=== PATIENT | female | born 1955 | race Caucasian/White ===

== ENCOUNTER 2020-10-23 16:28 | Outpatient (CLI) | payer OTHER, SELFPAY ==
--- NOTE | ~2020-10-23 | MM_ITS ---
EXAMINATION: MM screening sally BI w joseluis HISTORY: Screening mammogram TECHNIQUE: Craniocaudal and mediolateral oblique 3-D tomosynthesis images were obtained and synthetic 2-D images were generated. CAD analysis was submitted and interpreted. COMPARISON: 03/19/2018, , 12/28/2014 bilateral digital screening mammogram examinations BREAST PARENCHYMAL COMPOSITION: The breasts are heterogeneously dense, which may obscure small masses . FINDINGS: There is no evidence of suspicious mass, calcification, or architectural distortion to sugg est malignancy in either breast. There has been no suspicious interval change. IMPRESSION: 1. No mammographic evidence of malignancy. 2. Recommend routine screening mammography in one year. BI-RADS Category 1: Negative Reviewed, dictated and finalized at location A. CTOR OF ANNUAL GIVING
== END 2020-10-23 16:29 | disposition home or self-care (01) ==
LOC: ANHIMG 16:32
PROVIDERS: PCP Registered Nurse; Visit Provider Obstetrics & Gynecology
DX: Z12.31 Encounter for screening mammogram for malignant neoplasm of breast (principal)
CPT/HCPCS: 77063; 77067

== ENCOUNTER 2021-02-05 14:59 | Outpatient (CLI) | payer OTHER, SELFPAY ==
--- NOTE | ~2021-02-05 | DEXA_ITS ---
Bone Density Report Name: Seven Dunn Age: 65 Sex: Female Ethnicity: White Date of : 1955 Indication: postmenopausal; Referring Provider: Brandi, Alondra Study: Bone densitometry was performed. Exam Date: February 05, 2021 Accession number: [id number] Bone Density: Region BMD T-score Z-score Classification AP Spine (L1-L4) 1.164 1.1 2.9 Normal Femoral Neck (Left) 0.917 0.6 2.2 Normal Total Hip (Left) 1.111 1.4 2.7 Normal Total Hip Bilateral Avg 1.122 1.5 2.8 Normal Femoral Neck (Right) 0.960 1.0 2.5 Normal Total Hip (Right) 1.133 1.6 2.8 Normal World Health Organization criteria for BMD impression classify patients as: Normal (T-score at or above -1.0), Osteopenia (T-score between -1.0 and -2.5), or Osteoporosis (T-score at or below -2.5). 10-year Fracture Risk: FRAX not reported because: All T-scores for Spine Total, Hip Total, Femoral Neck at or above -1.0 Clinical Information Provided by Patient: Has used the following medications: Calcium Patient maximum height was 67 Menopause Age: 45 No regular weight bearing exercise Drinks caffeinated beverages Onset of menses at age 12 Number of children 1 Impression: The patient has normal bone mass. Discussion: LOW RISK OF FRACTURE; BONE DENSITY IS WELL ABOVE THE MINIMUM DESIRABLE LEVEL AND ABOVE AVERAGE FOR AGE AND SEX AT ALL SKELETAL SITES TESTED. This person's bone density is above expected limits for age and sex. This is rarely clinically significant, but should be pursued if there are significant musculoskeletal complaints. The patient should follow a healthful lifestyle (good nutrition with adequate calcium and vitamin D, and appropriate weight-bearing exercise). Follow-Up: Consider repeating this study in 5 years or sooner if there is some new clinical indication. Reported by: NOREEN on 02/05/2021 3:23:00 PM. Reviewed, dictated and finalized at location AChristen ESPARZA
== END 2021-02-05 15:00 | disposition home or self-care (01) ==
PROVIDERS: PCP Registered Nurse; Visit Provider Registered Nurse
DX: M81.0 Age-related osteoporosis without current pathological fracture (principal)
CPT/HCPCS: 77080

== ENCOUNTER 2021-03-09 11:43 | Emergency (ER) | payer OTHER, SELFPAY ==
--- NOTE | ~2021-03-09 | XR_ITS ---
EXAMINATION: XR ankle LT min 3V EXAM DATE: 03/09/2021 12:08 INDICATION: Diffuse left ankle pain s/p rolling 2 days ago . Initial encounter. TECHNIQUE: Left ankle frontal, lateral and oblique projections obtained and reviewed. Correlation is made to left foot examination 03/17/2017. FINDINGS: The left ankle mortise appears intact. There are no acute fractures or dislocations ident ified. There is no subcutaneous gas. There is soft tissue swelling over the ankle anterolaterally. There are no radiopaque foreign bodies. IMPRESSION: 1. XR ankle LT min 3V exam without acute osseous findings. 2. Soft tissue swelling. Reviewed, dictated and finalized at location A.
[2021-03-09 11:50] VITALS: BP 112/78; PULSE 74; RESP 16; TEMP 36.8; O2SAT 98
--- NOTE | 2021-03-09 11:50 | ED.LOWEXIN ---
HPI - Extremity Injury (Lower) General Chief Complaint: Extremity Injury, Lower Stated Complaint: left Ankle pain Time Seen by Provider: 03/09/21 11:50 Source: patient and RN notes reviewed Mode of arrival: ambulatory Limitations: no limitations History of Present Illness HPI Narrative: 65 yo female presents ot the [facility] with C/O left ankle pain since night. Patient denies completely falling hitting her head. No back pain or hip pain. Denies loss of consciousness. Denies any symptoms prior to just missing the bottom step. States that she missed the bottom step and rolled her ankle. Pain swelling and bruising noted. No pain along any of the metatarsals. Sensation intact in all 5 toes. No numbness noted. Positive pedal pulse. Full range of motion Related Data Home Medications Medication Instructions Recorded Confirmed levothyroxine 88 mcg PO DAILY 03/09/21 03/09/21 omeprazole 40 mg PO DAILY 03/09/21 03/09/21 oxybutynin chloride 5 mg PO DAILY 03/09/21 03/09/21 paroxetine HCl 40 mg PO DAILY 03/09/21 03/09/21 Allergies Allergy/AdvReac Type Severity Reaction Status Date / Time sulfamethoxazole Allergy Intermediate HIVES Verified 03/09/21 11:56 trimethoprim Allergy Intermediate HIVES Verified 03/09/21 11:56 Review of Systems Review of Systems: All systems reviewed & are unremarkable except as noted in HPI and below Constitutional: Constitutional: Reports no additional constitutional complaints, Denies chills and Denies fever(s) Eyes: Eyes: Reports no additional eye complaints Cardiovascular: Cardiovascular: Reports no additional cardiovascular complaints Respiratory: Respiratory: Reports no additional respiratory complaints Musculoskeletal: Musculoskeletal: Reports as per HPI and Reports joint swelling (Left ankle and foot) Integumentary/Breasts: Skin/Breast: Reports as per HPI Comments: Bruising noted to the left foot Neurologic: Reports system reviewed and no additional complaints, except as documented, Denies headache(s), Denies focal weakness, Denies numbness and Denies weakness Psychiatric: Psychiatric: Reports no additional psychiatric complaints PMFSH Comments At the time of my signature, I reviewed and agree with the nursing past medical, surgical, social, and family history. There is no relevant family history pertinent to the patient complaint. Exam Const: General: healthy appearing, no acute distress and alert Nutritional Appearance: well nourished and thin Orientation/consciousness: patient oriented x3 HENMT: Head: normal to inspection Neck: Neck: normal visual inspection, no lymphadenopathy and no meningeal signs Chest: Chest palpation & inspection: normal inspection of the chest Resp: Effort & Inspection: normal respiratory effort and no use of accessory muscles Auscultation: clear to auscultation bilaterally, no crackles, no rales, no rhonchi and no wheezes Cardio: Rate: regular rate Rhythm: regular rhythm Back/Spine/Pelvis: Back: no CVA tenderness Skin: Wounds: no wounds Other: Bruising noted left foot Neuro: General: patient oriented x3, moves all extremities and no focal motor deficits Speech: normal speech Gait exam (Neuro): gait abnormal (Walks with a limp, favoring left foot) Extrem: General: normal to inspection and edema (Swelling noted left foot with bruising.) Other: Swelling noted with bruising. Sensation intact in all 5 toes and along lateral and medial aspect of foot. Patient has a positive pedal pulse. Extremity is not cool to touch, warm matching rest of body temperature. Psych: Appearance: grossly normal and well kempt Mental Status: mental status grossly normal Affect: normal affect Attitude: cooperative Thought content: Yes Normal thought content present Course Vital Signs Vital signs: Vital Signs Temperature 98.2 F 03/09/21 11:50 Pulse Rate 74 03/09/21 11:50 Respiratory Rate 16 03/09/21 11:50 Blood Pressure 112/78 03/09/21
== END 2021-03-09 12:44 | disposition home or self-care (01) ==
PROVIDERS: Emergency Provider Nurse Practitioner; PCP Registered Nurse
DX: S93.402A Sprain of unspecified ligament of left ankle, initial encounter (principal); S96.912A Strain of unspecified muscle and tendon at ankle and foot level, left foot, initial encounter; X50.9XXA Other and unspecified overexertion or strenuous movements or postures, initial encounter; K21.9 Gastro-esophageal reflux disease without esophagitis; M51.36 Other intervertebral disc degeneration, lumbar region; E05.00 Thyrotoxicosis with diffuse goiter without thyrotoxic crisis or storm; F32.9 Major depressive disorder, single episode, unspecified; Z86.14 Personal history of Methicillin resistant Staphylococcus aureus infection; E03.9 Hypothyroidism, unspecified
CPT/HCPCS: 73610; 99213; G0463

== ENCOUNTER 2022-07-20 10:27 | Emergency (ER) | payer OTHER, SELFPAY ==
--- NOTE | ~2022-07-20 | XR_ITS ---
EXAMINATION: XR chest 2V DATE: 07/20/2022 10:54 INDICATION: Cough and left lower lung increasing TECHNIQUE: PA and lateral views of the chest were obtained. COMPARISON: None FINDINGS: Gas within a moderate-sized hiatal hernia no focal airspace opacities, pulmonary edema, pleural effus ion or pneumothorax. The cardiomediastinal silhouette is normal. Mild to moderate thoracic spondylosi s. Mild anterior wedging at a couple mid thoracic vertebral bodies, likely T6 and T7. IMPRESSION: 1. No acute cardiopulmonary disease. 2. Moderate-sized hiatal hernia. Reviewed, dictated and finalized at location A.
--- NOTE | 2022-07-20 10:33 | ED.URI ---
HPI - URI/Sore Throat General Chief Complaint: Upper Respiratory Infection Stated Complaint: Coughing,Running Nose Time Seen by Provider: 07/20/22 11:00 Source: patient and RN notes reviewed Mode of arrival: ambulatory Limitations: no limitations History of Present Illness HPI Narrative: 67- year-old female presents concern for 1 week history of cough, chest congestion, upper airway wheezing. She reports 2-week history of sinus congestion, drainage, pressure. She reports she is taking many [id number] medications without relief. Reports she has an inhaler leftover from previous bronchitis that she has been using twice a day without relief. She denies fever, bodies, chills, sweats. MD elicited complaint: cough and nasal congestion Related Data Home Medications Medication Instructions Recorded Confirmed levothyroxine 88 mcg tablet 88 mcg PO DAILY 03/09/21 03/09/21 omeprazole 40 mg capsule,delayed 40 mg PO DAILY 03/09/21 03/09/21 release oxybutynin chloride 5 mg tablet 5 mg PO DAILY 03/09/21 03/09/21 paroxetine HCl 40 mg tablet 40 mg PO DAILY 03/09/21 03/09/21 Allergies Allergy/AdvReac Type Severity Reaction Status Date / Time sulfamethoxazole Allergy Intermediate HIVES Verified 03/09/21 11:56 trimethoprim Allergy Intermediate HIVES Verified 03/09/21 11:56 Review of Systems Review of Systems: CONSTITUTIONAL: Reports malaise. Denies chills, sweats, or fever. EYES: Denies visual changes, redness, or discharge. ENT: Reports rhinorrhea, congestion, sinus pain. Denies talgia and sore throat. CARDIOVASCULAR: Denies chest pain, palpitations, or edema. RESPIRATORY: Reports cough, chest congestion, episodic dyspnea. GASTROINTESTINAL: Denies abdominal pain, nausea, vomiting, diarrhea SKIN: Denies rash or itching. MUSCULOSKELETAL: Denies myalgia. NEUROLOGIC: Denies headache. All systems reviewed & are unremarkable except as noted in HPI and below PMFSH Comments At time of signature, agree with nursing past medical, surgical, social and family history. There is no relevant family history pertinent to the presenting complaint Exam Narrative: GENERAL: Nontoxic appearing and in no acute distress. HEAD: Normocephalic EYES: PERRLA, conjunctivae clear ENT: Nares clear, turbinates edematous and erythematous. Mucous membranes moist. TM pearly merino with dull light reflex bilaterally; no tragal tenderness. Oropharynx not erythematous without lesions. Tonsils not enlarged and without exudate, no drooling, mild hoarseness, no trismus, uvula midline. NECK: Supple. No lymphadenopathy CHEST: Clear to auscultation, breath sounds equal. No wheezing, rhonchi, rales, or stridor. No respiratory distress, speaks in full sentences. Cough noted HEART: Regular rate and rhythm. No murmur heard. SKIN: Warm, dry, no rash. NEURO: Alert and oriented x3. PSYCH: Normal mood and affect Course Course Emergency Course: Patient is aware of diagnosis, understands and agrees to treatment plan. Anticipatory guidance given. Patient agrees to follow-up as directed and is aware of reasons to seek care at the emergency department. Portions of this record may have been created with voice recognition software Level of Care: Express Care Visit Vital Signs Vital signs: Reviewed. MDM - URI/Sore Throat MDM Narrative Medical decision making narrative: Differential diagnosis considered: Romero virus, strep pharyngitis, allergic rhinitis, upper respiratory tract infection, sinusitis, rhinosinusitis, nasopharyngitis. viral pharyngitis, otitis media, otitis externa, pneumonia, bronchitis, viral cough syndrome, viral syndrome, and influenza. Exam findings show no acute concerns or changes; patient is non-toxic appearing and is in no distress. Patient is appropriate for outpatient treatment and follow-up. Lab Data Attestation: I reviewed the patient's lab results. Critical Care Time Critical Care Time Critical Care Time: No Discharge Plan Discharge Clinical
[2022-07-20 10:39] VITALS: BP 121/63; PULSE 77; RESP 16; TEMP 36.6; O2SAT 98
== END 2022-07-20 11:11 | disposition home or self-care (01) ==
PROVIDERS: Emergency Provider Nurse Practitioner; PCP Registered Nurse
DX: J32.9 Chronic sinusitis, unspecified (principal); J40 Bronchitis, not specified as acute or chronic; K21.9 Gastro-esophageal reflux disease without esophagitis; M51.36 Other intervertebral disc degeneration, lumbar region; E03.9 Hypothyroidism, unspecified; E05.00 Thyrotoxicosis with diffuse goiter without thyrotoxic crisis or storm; Z86.14 Personal history of Methicillin resistant Staphylococcus aureus infection
CPT/HCPCS: 71046; 99213; G0463

== ENCOUNTER → 2023-08-24 12:49 | Outpatient (CLI) | payer OTHER, SELFPAY ==
--- NOTE | ~2023-08-24 | MR_ITS ---
EXAMINATION: MR brain/brain stem wo con DATE: 08/24/2023 14:01 INDICATION: Memory loss. TECHNIQUE: Magnetic resonance imaging (MRI) of the brain and brainstem was performed without intraven ous contrast. COMPARISON: None. FINDINGS: There is a 2.4 cm mass in left parotid gland. There is no intracranial hemorrhage, acute in farction, or abnormal intracranial mass lesion. The ventricles are normal in size. There is mild muco zaira thickening in the ethmoid sinuses. There are likely changes of ocular lens replacement surgeries. The mastoid air cells are normal. IMPRESSION: 1. Normal brain. 2. 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 The differential diagnosis includes benign mixed tumor, Warthin tumor, and less likely primary malignancy or quinn metastatic disease. Ultrasound-guided fine needle aspiration is recommended. Reviewed, dictated and finalized at location E. RVISOR ESTIMATOR AND DRAFTER IMPRESSION: 1. Normal brain. 2. 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 The differential diagnosis includes benig n mixed tumor, Warthin tumor, and less likely primary malignancy or quinn metas tatic disease. Ultrasound-guided fine needle aspiration is recommended.
== END ==
PROVIDERS: PCP Registered Nurse; Visit Provider Registered Nurse
DX: R41.3 Other amnesia (principal); D11.0 Benign neoplasm of parotid gland
CPT/HCPCS: 70551

== ENCOUNTER 2025-02-03 11:52 | Outpatient (CLI) | payer MEDICARE, SELFPAY ==
--- NOTE | ~2025-02-03 | MR_ITS ---
MRI of the cervical spine Clinical History: Neck pain Technique: Axial T2-weighted and gradient images, and sagittal T1-weighted, T2-weighted, and STIR gabrielle ges were acquired. Findings: There is no fracture or subluxation of the cervical spine. Vertebral bodies maintain normal height and alignment. No bone marrow signal abnormality seen. At C2-C3, there is no disc bulge or herniation. No spinal canal stenosis, cord compression, or neural foraminal narrowing. At C3-C4, there is no disc bulge or herniation. No spinal canal stenosis, cord compression, or neural foraminal narrowing. At C4-C5, there is no disc bulge or herniation. No spinal canal stenosis, cord compression, or neural foraminal narrowing. At C5-C6, there is moderate degenerative disc narrowing. There is disc osteophyte complex with minima l flattening the ventral cord. There is severe right neural foraminal narrowing. Left neural foramen probably preserved. At C6-C7, there is minimal disc osteophyte complex. No spinal canal stenosis, cord compression, or ne ural foraminal narrowing. No abnormal signal seen in the spinal cord. Scattered mild degenerative facet joint changes are prese nt and cervical spine. Paravertebral soft tissues otherwise are unremarkable. Impression: Moderate degenerative spondylosis C5-C6, as detailed above. Additional mild facet joint arthropathy in the cervical spine. Reviewed, dictated and finalized at [facility]. Impression: Moderate degenerative spondylosis C5-C6, as detailed above. Additional mild facet joint arthropathy in the cervical spine.
== END 2025-02-03 11:53 | disposition home or self-care (01) ==
LOC: MICIMG 11:53
PROVIDERS: PCP Registered Nurse; Visit Provider Nurse Practitioner
DX: M47.812 Spondylosis without myelopathy or radiculopathy, cervical region (principal)
CPT/HCPCS: 72141